=== PATIENT | female | born 1985 | race Caucasian/White ===

== ENCOUNTER 2020-06-04 10:41 | Outpatient (CLI) | payer SELFPAY ==
--- NOTE | 2020-06-04 10:47 | CT_ITS ---
WS: [id number] CT scan of the orbital region. Additional two-dimensional coronal and sagittal reconstruction was per formed. 06/04/2020 Clinical Data: RETROBULBAR NEURITIS RIGHT EYE Comparison: None. DLP: 390.[address] scans at [facility] use at least one of these dose optimization techniques: automat ed exposure control; mA and/or kV adjustment per patient size (includes targeted exams where dose is matched to clinical indication); or iterative reconstruction. Findings: The facial bones are unremarkable. The nasal bones are normal. The paranasal sinuses show no erosions, air-fluid levels or mucoperiosteal thickening. The orbits and orbital contents are normal. The mastoid air cells, internal auditory canals, and sell a turcica are not remarkable. The intracerebral circulation is partly seen and shows no aneurysms or abnormalities. The sella turci ca is normal. The mastoid air cells and internal auditory canals show no abnormalities. The temporal mandibular joints appear to be normal. The zygomatic arches and nasal bones are normal. CT/CT orbit BI w con [id number] Impression: Negative CT scan of the orbits region.
[2020-06-04] MEDS: iohexol 300 mg/mL 100 mL Btl IV (13:26)
== END 2020-06-04 10:42 | disposition home or self-care (01) ==
LOC: RAD 10:44
PROVIDERS: PCP Physician Assistant Medical; Visit Provider Optometrist
DX: H46.11 Retrobulbar neuritis, right eye (principal)
CPT/HCPCS: 70481

== ENCOUNTER 2023-10-04 07:57 | Outpatient (CLI) | payer SELFPAY ==
--- NOTE | 2023-10-04 | MM_ITS ---
WS: [id number] BILATERAL 3D TOMOSYNTHESIS DIGITAL DIAGNOSTIC MAMMOGRAPHY WITH CAD CLINICAL INFORMATION: PALPABLE RT BR LUMP HISTORY: RIGHT breast lumps and pain COMPARISON: Baseline TECHNIQUE: Bilateral CC, MLO, and ML views. FINDINGS: The breasts are composed of extremely dense tissue, which can limit the detection of small underlying mass lesions. A few incidental punctate and clustered calcifications. Palpable markers lower inner R IGHT breast. Normal underlying parenchymal tissue. Ultrasound of this area is pending. Unremarkable LEFT breast. ULTRASOUND BREAST RIGHT TECHNIQUE: Ultrasound right breast focused area of concern. CLINICAL INFORMATION: PALPABLE RT BR LUMP FINDINGS: Ultrasound RIGHT breast areas of concern at the 5:00 and 6:00 positions. Normal underlying parenchyma l tissue. No cystic or solid lesions. No suspicious findings. IMPRESSION: MM/[place] [id number] BI-RADS: 2-Benign FOLLOW UP: 1 Year Follow-up Recommend return to annual screening mammography.
--- NOTE | 2023-10-04 08:18 | US_ITS ---
WS: [id number] BILATERAL 3D TOMOSYNTHESIS DIGITAL DIAGNOSTIC MAMMOGRAPHY WITH CAD CLINICAL INFORMATION: PALPABLE RT BR LUMP HISTORY: RIGHT breast lumps and pain COMPARISON: Baseline TECHNIQUE: Bilateral CC, MLO, and ML views. FINDINGS: The breasts are composed of extremely dense tissue, which can limit the detection of small underlying mass lesions. A few incidental punctate and clustered calcifications. Palpable markers lower inner R IGHT breast. Normal underlying parenchymal tissue. Ultrasound of this area is pending. Unremarkable LEFT breast. ULTRASOUND BREAST RIGHT TECHNIQUE: Ultrasound right breast focused area of concern. CLINICAL INFORMATION: PALPABLE RT BR LUMP FINDINGS: Ultrasound RIGHT breast areas of concern at the 5:00 and 6:00 positions. Normal underlying parenchyma l tissue. No cystic or solid lesions. No suspicious findings. IMPRESSION: US/US breast RT limited* [id number] BI-RADS: 2-Benign FOLLOW UP: 1 Year Follow-up Recommend return to annual screening mammography.
== END 2023-10-04 07:58 | disposition home or self-care (01) ==
LOC: RAD 07:58
PROVIDERS: PCP Registered Nurse; Visit Provider Registered Nurse
DX: N64.4 Mastodynia (principal)
CPT/HCPCS: 76642; 77062; G0279